=== PATIENT | male | born 1930 | race Caucasian/White ===

== ENCOUNTER → 2017-04-09 | Outpatient (CLI) | payer MEDICARE, OTHER ==
[~2017-04-09] MED LIST: ENAL2.5T PO; HYDR-3237 PO; LOSA50TA6 PO; MAGN64TA9 PO; METO50TA82 PO; METR500T PO; OXYC-302 PO; PRIM50TA PO; SOTA80TA PO; WARF1TAB PO; WARF5TAB7 PO; [UNRECOGNIZED DRUG - OTHER]
[2017-04-10 01:16] LABS: TESTOSTERONE TOTAL 700 ng/dL (264-916)
== END | disposition home or self-care (01) ==
LOC: LAB 08:13
PROVIDERS: ATTEND Urology
DX: C61 Malignant neoplasm of prostate (principal); E29.1 Testicular hypofunction
CPT/HCPCS: 36415; 84153; 84403

== ENCOUNTER → 2017-07-19 | Outpatient (CLI) | payer MEDICARE, OTHER ==
[~2017-07-19] MED LIST changes: +WARF-36 PO; -WARF5TAB7 PO
[2017-07-19 15:54] LABS: BASOPHILS # (AUTO) 0.05 x10^3/uL (0-0.1); BASOPHILS % (AUTO) 0 % (0-1); EOSINOPHILS # (AUTO) 0.33 x10^3/uL (0-0.4); EOSINOPHILS % (AUTO) 3 % (1-7); LYMPHOCYTES % (AUTO) 21 % (22-44); MD NO; MEAN CORPUSCULAR HEMOGLOBIN 31.6 pg (27.5-34.5); MEAN CORPUSCULAR HGB CONC 33.4 g/dL (33.2-36.2); MEAN CORPUSCULAR VOLUME 94.5 fL (81-97); MEAN PLATELET VOLUME 8.7 fL (7.4-10.4); MONOCYTES # (AUTO) 1.05 x10^3/uL (0.2-0.8); MONOCYTES % (AUTO) 10 % (2-9); NEUTROPHILS # (AUTO) 6.69 x10^3/uL (1.8-6.8); NEUTROPHILS % (AUTO) 65 % (42-75); PLATELET COUNT 240 x10^3/uL (130-400); RED BLOOD COUNT 4.42 x10^6/uL (4.38-5.82); RED CELL DISTRIBUTION WIDTH 14.1 % (9.4-14.8)
[2017-07-19 16:03] LABS: ALANINE AMINOTRANSFERASE 17 U/L (12-78); ALBUMIN 3.4 g/dL (3.4-5.0); ANION GAP 7 mmol/L (5-15); CALCIUM 8.3 mg/dL (8.5-10.1); CHLORIDE 112 mmol/L (98-107)
[2017-07-19 16:07] LABS: ALKALINE PHOSPHATASE 99 U/L (45-117); BILIRUBIN,TOTAL 0.4 mg/dL (0.2-1.0); TOTAL PROTEIN 7.1 g/dL (6.4-8.2)
== END | disposition home or self-care (01) ==
LOC: LAB 15:27
PROVIDERS: ATTEND Nurse Practitioner Family
DX: L82.0 Inflamed seborrheic keratosis (principal); L53.8 Other specified erythematous conditions; L29.8 Other pruritus; R20.8 Other disturbances of skin sensation; L20.84 Intrinsic (allergic) eczema; D69.2 Other nonthrombocytopenic purpura; R97.20 Elevated prostate specific antigen [PSA]
CPT/HCPCS: 36415; 80053; 84066; 84153; 85025

== ENCOUNTER 2017-09-01 07:57 | Inpatient (IN) | payer MEDICARE, OTHER ==
[~2017-09-01] VITALS: Ht 177.8 cm; Wt 75.3 kg
[~2017-09-01 07:57] MED LIST changes: -MAGN64TA9 PO; +MAGNESIUM DR64 MG PO
[2017-09-01 08:10] LABS: MEAN CORPUSCULAR HEMOGLOBIN 31.7 pg (27.5-34.5); MEAN CORPUSCULAR HGB CONC 33.3 g/dL (33.2-36.2); MEAN CORPUSCULAR VOLUME 95.3 fL (81-97); MEAN PLATELET VOLUME 8.3 fL (7.4-10.4); PLATELET COUNT 218 x10^3/uL (130-400); RED BLOOD COUNT 4.68 x10^6/uL (4.38-5.82); RED CELL DISTRIBUTION WIDTH 13.9 % (9.4-14.8)
[2017-09-01 08:19] LABS: INTERNATIONAL NORMALIZED RATIO 0.96 (0.93-1.1)
[2017-09-01] MEDS ORDERED: LABETALOL 5MG/ML, 20ML ONE (08:36)
[2017-09-01] MEDS ORDERED: LABETALOL 5MG/ML, 20ML IVPush STA (08:39)
[2017-09-01] MEDS ORDERED: ALTEPLASE 1 MG/ML ONE (08:55)
[2017-09-01 08:56] LABS: BASOPHILS # (AUTO) 0.05 x10^3/uL (0-0.1); BASOPHILS % (AUTO) 0 % (0-1); EOSINOPHILS # (AUTO) 0.18 x10^3/uL (0-0.4); EOSINOPHILS % (AUTO) 2 % (1-7); LYMPHOCYTES # (AUTO) 2.16 x10^3/uL (1-3.4); LYMPHOCYTES % (AUTO) 19 % (22-44); MD SCAN; MONOCYTES # (AUTO) 1.48 x10^3/uL (0.2-0.8); MONOCYTES % (AUTO) 13 % (2-9); NEUTROPHILS # (AUTO) 7.63 x10^3/uL (1.8-6.8); NEUTROPHILS % (AUTO) 66 % (42-75)
[2017-09-01] MEDS: ALTEPLASE IV ONE ×2 (09:00→09:07)
[2017-09-01] MEDS ORDERED: ALTEPLASE 8 MG in SYRINGE 1 EA IVPush ONE (09:00)
[2017-09-01] MEDS ORDERED: MICROFIBRILLAR COLLAGEN 1 GM TP ONE ×2 (10:42→11:00)
[2017-09-01] MEDS ORDERED: LABETALOL 5MG/ML, 20ML IV PRN (11:30)
[2017-09-01] MEDS ORDERED: TOPI25CA PO (13:28)
[2017-09-01] MEDS: THIAMINE 100 MG, MVI ADULT 10 ML, FOLIC ACID 1 MG in D5%-0.9% NACL 1,000 ML IV SCH (13:39)
[2017-09-01] MEDS: NICOTINE 7 MG/24 HR PATCH.TD24 TD SCH (13:39)
[2017-09-01 15:52] LABS: MICROSCOPIC AUTO
[2017-09-01 15:53] LABS: CULTURE INDICATED? NO
[2017-09-01] MEDS: ALBUTEROL/IPRATROPIUM 2.5MG/0.5MG, 3 ML NPPB SCH (17:43)
[2017-09-01] MEDS: ATORVASTATIN 80 MG TABLET PO SCH (21:10)
[2017-09-02 04:00] VITALS: BP 133/69
[2017-09-02 04:34] LABS: MEAN CORPUSCULAR HEMOGLOBIN 31.6 pg (27.5-34.5); MEAN CORPUSCULAR HGB CONC 33.3 g/dL (33.2-36.2); MEAN CORPUSCULAR VOLUME 94.8 fL (81-97); MEAN PLATELET VOLUME 8.4 fL (7.4-10.4); PLATELET COUNT 195 x10^3/uL (130-400); RED BLOOD COUNT 4.25 x10^6/uL (4.38-5.82); RED CELL DISTRIBUTION WIDTH 13.6 % (9.4-14.8)
[2017-09-02 04:47] LABS: ALBUMIN 3.2 g/dL (3.4-5.0); ANION GAP 8 mmol/L (5-15); CALCIUM 8.3 mg/dL (8.5-10.1); CHLORIDE 112 mmol/L (98-107)
[2017-09-02 04:53] LABS: ALANINE AMINOTRANSFERASE 16 U/L (12-78); ALKALINE PHOSPHATASE 70 U/L (45-117); BASOPHILS # (AUTO) 0.09 x10^3/uL (0-0.1); BASOPHILS % (AUTO) 1 % (0-1); CHOL/HDL RATIO 2.8; CHOLESTEROL, TOTAL 148 mg/dL (140-239); CREATININE 0.97 mg/dL (0.7-1.3); EOSINOPHILS # (AUTO) 0.16 x10^3/uL (0-0.4); EOSINOPHILS % (AUTO) 1 % (1-7); HDL CHOL % 36 % (26-37); HDL CHOLESTEROL (DIRECT) 53 mg/dL (40-60); LDL CHOLESTEROL,CALCULATED 70 mg/dL (54-169); LDL/HDL RATIO 1.3 (0.5-3.0); LYMPHOCYTES # (AUTO) 1.78 x10^3/uL (1-3.4); LYMPHOCYTES % (AUTO) 12 % (22-44); MD SCAN; MONOCYTES # (AUTO) 1.69 x10^3/uL (0.2-0.8); MONOCYTES % (AUTO) 11 % (2-9); NEUTROPHILS # (AUTO) 11.38 x10^3/uL (1.8-6.8); NEUTROPHILS % (AUTO) 75 % (42-75); TOTAL PROTEIN 6.4 g/dL (6.4-8.2); TRIGLYCERIDES 126 mg/dL (50-200); VLDL CHOLESTEROL 25 mg/dL (0-25)
[2017-09-02] MEDS: ALBUTEROL/IPRATROPIUM 2.5MG/0.5MG, 3 ML NPPB SCH ×2 (09:00→19:46)
[2017-09-02] MEDS: NICOTINE 7 MG/24 HR PATCH.TD24 TD SCH (12:11)
[2017-09-02] MEDS: THIAMINE 100 MG, MVI ADULT 10 ML, FOLIC ACID 1 MG in D5%-0.9% NACL 1,000 ML IV SCH (12:12)
[2017-09-02] MEDS: TOPIRAMATE 25 MG TABLET PO SCH ×2 (12:12→20:36)
[2017-09-02 14:40] VITALS: BP 130/62
[2017-09-02] MEDS: ASPIRIN 81 MG TABLET EC PO SCH (15:31)
[2017-09-02 18:43] VITALS: BP 127/71
[2017-09-02] MEDS: ATORVASTATIN 80 MG TABLET PO SCH (20:35)
[2017-09-02 23:57] VITALS: BP 107/58
[2017-09-03 03:16] VITALS: BP 124/71
[2017-09-03] MEDS: ENOXAPARIN 40 MG/0.4 ML SQ SCH (05:39)
[2017-09-03 06:07] LABS: BASOPHILS # (AUTO) 0.05 x10^3/uL (0-0.1); BASOPHILS % (AUTO) 0 % (0-1); EOSINOPHILS # (AUTO) 0.18 x10^3/uL (0-0.4); EOSINOPHILS % (AUTO) 2 % (1-7); LYMPHOCYTES # (AUTO) 2.16 x10^3/uL (1-3.4); LYMPHOCYTES % (AUTO) 19 % (22-44); MD NO; MEAN CORPUSCULAR HEMOGLOBIN 31.7 pg (27.5-34.5); MEAN CORPUSCULAR HGB CONC 33.4 g/dL (33.2-36.2); MEAN CORPUSCULAR VOLUME 94.8 fL (81-97); MEAN PLATELET VOLUME 8.3 fL (7.4-10.4); MONOCYTES # (AUTO) 1.22 x10^3/uL (0.2-0.8); MONOCYTES % (AUTO) 11 % (2-9); NEUTROPHILS # (AUTO) 7.73 x10^3/uL (1.8-6.8); NEUTROPHILS % (AUTO) 68 % (42-75); PLATELET COUNT 179 x10^3/uL (130-400); RED BLOOD COUNT 4.12 x10^6/uL (4.38-5.82); RED CELL DISTRIBUTION WIDTH 13.1 % (9.4-14.8)
[2017-09-03 06:25] LABS: CHLORIDE 113 mmol/L (98-107)
[2017-09-03 06:38] LABS: ALANINE AMINOTRANSFERASE 16 U/L (12-78); ALBUMIN 2.9 g/dL (3.4-5.0); ALKALINE PHOSPHATASE 64 U/L (45-117); ANION GAP 8 mmol/L (5-15); BILIRUBIN,TOTAL 1.1 mg/dL (0.2-1.0); CALCIUM 8.1 mg/dL (8.5-10.1); CREATININE 0.94 mg/dL (0.7-1.3); TOTAL PROTEIN 6.2 g/dL (6.4-8.2)
[2017-09-03 07:24] VITALS: BP 126/65
[2017-09-03] MEDS: ALBUTEROL/IPRATROPIUM 2.5MG/0.5MG, 3 ML NPPB SCH (09:00)
[2017-09-03] MEDS: TOPIRAMATE 25 MG TABLET PO SCH ×2 (09:49→22:13)
[2017-09-03] MEDS: NICOTINE 7 MG/24 HR PATCH.TD24 TD SCH (12:25)
[2017-09-03 14:42] VITALS: BP 149/80
[2017-09-03 14:45] VITALS: BP 128/71
[2017-09-03] MEDS: ASPIRIN 81 MG TABLET EC PO SCH (15:04)
[2017-09-03 18:32] VITALS: BP 125/76
[2017-09-03] MEDS: ATORVASTATIN 80 MG TABLET PO SCH (22:13)
[2017-09-04 02:53] VITALS: BP 117/69
[2017-09-04] MEDS: ENOXAPARIN 40 MG/0.4 ML SQ SCH (06:19)
[2017-09-04 07:28] VITALS: BP 121/72
[2017-09-04] MEDS: TOPIRAMATE 25 MG TABLET PO SCH ×2 (09:22→20:37)
[2017-09-04] MEDS: NICOTINE 7 MG/24 HR PATCH.TD24 TD SCH (11:40)
[2017-09-04] MEDS: NS + 20MEQ KCL 1,000 ML IV SCH (13:38)
[2017-09-04 14:02] VITALS: BP 128/75
[2017-09-04] MEDS: ASPIRIN 81 MG TABLET EC PO SCH (15:32)
[2017-09-04 18:23] VITALS: BP 117/70
[2017-09-04] MEDS: ATORVASTATIN 80 MG TABLET PO SCH (20:37)
[2017-09-05] MEDS: NS + 20MEQ KCL 1,000 ML IV SCH ×2 (00:04→13:55)
[2017-09-05 04:42] VITALS: BP 131/70
[2017-09-05 05:15] LABS: MEAN CORPUSCULAR HEMOGLOBIN 32.5 pg (27.5-34.5); MEAN CORPUSCULAR HGB CONC 34.3 g/dL (33.2-36.2); MEAN CORPUSCULAR VOLUME 94.8 fL (81-97); MEAN PLATELET VOLUME 8.3 fL (7.4-10.4); PLATELET COUNT 171 x10^3/uL (130-400); RED BLOOD COUNT 3.97 x10^6/uL (4.38-5.82); RED CELL DISTRIBUTION WIDTH 13.3 % (9.4-14.8)
[2017-09-05 05:31] LABS: ALBUMIN 2.8 g/dL (3.4-5.0); ANION GAP 9 mmol/L (5-15); CALCIUM 7.9 mg/dL (8.5-10.1); CHLORIDE 111 mmol/L (98-107); CREATININE 0.87 mg/dL (0.7-1.3)
[2017-09-05 06:07] LABS: BASOPHILS # (AUTO) 0.04 x10^3/uL (0-0.1); BASOPHILS % (AUTO) 0 % (0-1); EOSINOPHILS # (AUTO) 0.22 x10^3/uL (0-0.4); EOSINOPHILS % (AUTO) 2 % (1-7); LYMPHOCYTES # (AUTO) 1.82 x10^3/uL (1-3.4); LYMPHOCYTES % (AUTO) 15 % (22-44); MD SCAN; MONOCYTES # (AUTO) 1.53 x10^3/uL (0.2-0.8); MONOCYTES % (AUTO) 12 % (2-9); NEUTROPHILS % (AUTO) 71 % (42-75)
[2017-09-05] MEDS: ENOXAPARIN 40 MG/0.4 ML SQ SCH (06:45)
[2017-09-05 07:07] VITALS: BP 152/64
[2017-09-05] MEDS: TOPIRAMATE 25 MG TABLET PO SCH ×2 (09:12→21:31)
[2017-09-05] MEDS: NICOTINE 7 MG/24 HR PATCH.TD24 TD SCH (09:13)
[2017-09-05] MEDS: ASPIRIN 81 MG TABLET EC PO SCH (13:55)
[2017-09-05 14:45] VITALS: BP 134/72
[2017-09-05 20:26] LABS: CLOSTRIDIUM DIFFICILE ANTIGEN NEGATIVE; CLOSTRIDIUM DIFFICILE TOXIN NEGATIVE (Negative)
[2017-09-05 20:39] VITALS: BP 154/78
[2017-09-05] MEDS: ATORVASTATIN 80 MG TABLET PO SCH (21:31)
[2017-09-06] MEDS: NS + 20MEQ KCL 1,000 ML IV SCH (00:30)
[2017-09-06 01:04] VITALS: BP 130/72
[2017-09-06 04:36] VITALS: BP 130/72
[2017-09-06] MEDS: ENOXAPARIN 40 MG/0.4 ML SQ SCH (06:20)
[2017-09-06 08:26] VITALS: BP 117/69
[2017-09-06] MEDS: TOPIRAMATE 25 MG TABLET PO SCH ×2 (08:57→21:19)
[2017-09-06] MEDS: NICOTINE 7 MG/24 HR PATCH.TD24 TD SCH (08:58)
[2017-09-06] MEDS ORDERED: LOPERAMIDE 2 MG CAPSULE PO PRN (09:00)
[2017-09-06 12:17] VITALS: BP 148/78
[2017-09-06] MEDS: ASPIRIN 81 MG TABLET EC PO SCH (16:37)
[2017-09-06 16:38] VITALS: BP 150/84
[2017-09-06 19:03] VITALS: BP 131/74
[2017-09-06] MEDS: ATORVASTATIN 80 MG TABLET PO SCH (21:19)
[2017-09-07 02:00] VITALS: BP 144/70
[2017-09-07 04:00] VITALS: BP_SYST 127; BP_SYST 137; BP_DIAS 72; BP_DIAS 75
[2017-09-07] MEDS: ENOXAPARIN 40 MG/0.4 ML SQ SCH (05:15)
[2017-09-07 05:52] LABS: BASOPHILS # (AUTO) 0.01 x10^3/uL (0-0.1); BASOPHILS % (AUTO) 0 % (0-1); EOSINOPHILS # (AUTO) 0.23 x10^3/uL (0-0.4); EOSINOPHILS % (AUTO) 2 % (1-7); LYMPHOCYTES # (AUTO) 1.72 x10^3/uL (1-3.4); LYMPHOCYTES % (AUTO) 15 % (22-44); MD NO; MEAN CORPUSCULAR HEMOGLOBIN 32.3 pg (27.5-34.5); MEAN CORPUSCULAR VOLUME 95.1 fL (81-97); MEAN PLATELET VOLUME 8.3 fL (7.4-10.4); MONOCYTES # (AUTO) 1.17 x10^3/uL (0.2-0.8); MONOCYTES % (AUTO) 10 % (2-9); NEUTROPHILS # (AUTO) 8.11 x10^3/uL (1.8-6.8); NEUTROPHILS % (AUTO) 72 % (42-75); PLATELET COUNT 196 x10^3/uL (130-400); RED BLOOD COUNT 4.58 x10^6/uL (4.38-5.82); RED CELL DISTRIBUTION WIDTH 13.3 % (9.4-14.8)
[2017-09-07 06:02] LABS: ANION GAP 8 mmol/L (5-15); CALCIUM 8.6 mg/dL (8.5-10.1); CHLORIDE 110 mmol/L (98-107)
[2017-09-07 06:35] VITALS: BP 124/70
[2017-09-07] MEDS: TOPIRAMATE 25 MG TABLET PO SCH (09:25)
[2017-09-07] MEDS ORDERED: NICO-485 TD (11:11)
[2017-09-07] MEDS ORDERED: ATOR-2 PO (11:11)
[2017-09-07] MEDS ORDERED: ASPI-621 PO (11:11)
[2017-09-07 12:07] VITALS: BP 129/75
[2017-09-07] MEDS: NICOTINE 7 MG/24 HR PATCH.TD24 TD SCH (13:16)
[2017-09-07] MEDS: ASPIRIN 81 MG TABLET EC PO SCH (15:40)
== END 2017-09-07 16:53 | DRG 61 ==
LOC: ED 10:19 → EDIP 10:57 → CCU 12:17 → 4WST 09-02 15:16
PROVIDERS: ADMIT Hospitalist; ATTEND Hospitalist
DX: I63.312 Cerebral infarction due to thrombosis of left middle cerebral artery (principal); G93.40 Encephalopathy, unspecified; E44.0 Moderate protein-calorie malnutrition; I48.0 Paroxysmal atrial fibrillation; R47.01 Aphasia; R13.10 Dysphagia, unspecified; F17.200 Nicotine dependence, unspecified, uncomplicated; D72.829 Elevated white blood cell count, unspecified; I73.9 Peripheral vascular disease, unspecified; I11.9 Hypertensive heart disease without heart failure; F17.210 Nicotine dependence, cigarettes, uncomplicated; G25.0 Essential tremor; I65.22 Occlusion and stenosis of left carotid artery; M17.11 Unilateral primary osteoarthritis, right knee; N40.0 Benign prostatic hyperplasia without lower urinary tract symptoms; R29.810 Facial weakness; Z79.01 Long term (current) use of anticoagulants; Z68.23 Body mass index [BMI] 23.0-23.9, adult; Z85.038 Personal history of other malignant neoplasm of large intestine; Z88.8 Allergy status to other drugs, medicaments and biological substances; Z82.49 Family history of ischemic heart disease and other diseases of the circulatory system
CPT/HCPCS: 36415; 70450; 70544; 70551; 74230; 80047; 80048; 80053; 80061; 80069; 81001; 83735; 84100; 85025; 85610; 85730; 87081; 87324; 93005; 93306; 93880; 94640; 96365; 96366; 96375; J1650; J2997; J3411; J3480; J7042; J7620; 92523-GN

== ENCOUNTER → 2017-11-03 | Outpatient (CLI) | payer MEDICARE, OTHER ==
[~2017-11-03] MED LIST changes: +ASPI-621 PO; +ATOR-2 PO; +NICO-485 TD; +TOPI25CA PO
== END | disposition home or self-care (01) ==
LOC: LAB 12:02
PROVIDERS: ATTEND Physician Assistant
DX: C61 Malignant neoplasm of prostate (principal)
CPT/HCPCS: 36415; 84153

== ENCOUNTER 2018-06-08 16:44 | Inpatient (IN) | payer MEDICARE, OTHER ==
[~2018-06-08] VITALS: Ht 177.8 cm; Wt 84.2 kg
[~2018-06-08 16:44] MED LIST changes: -ASPI-621 PO; +ASPI81TA45 PO; +LOSA50TA14 PO; -LOSA50TA6 PO
--- NOTE | 2018-06-08 17:00 | NUR ---
SEE TRIAGE NOTE. PT PLACED ON BP CUFF, PULSE OX, AND HEART MONITOR. EKG COMPLETED AT BS. CALL LIGHT WITHIN REACH.
[2018-06-08] MEDS ORDERED: SODIUM CHLORIDE FLUSH 10ML SYR IVF ONE (18:00)
[2018-06-08] MEDS ORDERED: PLEASE ENTER HEIGHT AND WEIGHT MC SCH (18:00)
[2018-06-08 18:15] LABS: BASOPHILS # (AUTO) 0.01 x10^3/uL (0-0.1); BASOPHILS % (AUTO) 0 % (0-1); EOSINOPHILS # (AUTO) 0.02 x10^3/uL (0-0.4); EOSINOPHILS % (AUTO) 0 % (1-7); LYMPHOCYTES # (AUTO) 0.87 x10^3/uL (1-3.4); LYMPHOCYTES % (AUTO) 8 % (22-44); MD NO; MEAN CORPUSCULAR HEMOGLOBIN 31.8 pg (27.5-34.5); MEAN CORPUSCULAR HGB CONC 33.9 g/dL (33.2-36.2); MEAN CORPUSCULAR VOLUME 93.9 fL (81-97); MEAN PLATELET VOLUME 8.2 fL (7.4-10.4); MONOCYTES # (AUTO) 1.03 x10^3/uL (0.2-0.8); MONOCYTES % (AUTO) 9 % (2-9); NEUTROPHILS # (AUTO) 9.24 x10^3/uL (1.8-6.8); NEUTROPHILS % (AUTO) 83 % (42-75); PLATELET COUNT 177 x10^3/uL (130-400); RED BLOOD COUNT 3.81 x10^6/uL (4.38-5.82); RED CELL DISTRIBUTION WIDTH 13.8 % (9.4-14.8)
[2018-06-08 18:18] LABS: INTERNATIONAL NORMALIZED RATIO 1.39 (0.93-1.1); PROTHROMBIN TIME 14.5 Seconds (9.6-11.5)
[2018-06-08] MEDS ORDERED: MONT10TA9 PO (18:20)
[2018-06-08] MEDS ORDERED: HYDR25TA11 PO (18:20)
[2018-06-08] MEDS ORDERED: FEXO1TAB29 PO (18:20)
[2018-06-08] MEDS ORDERED: HYDR-3240 PO (18:20)
[2018-06-08] MEDS ORDERED: PROP80CA3 PO (18:20)
[2018-06-08] MEDS ORDERED: ATOR-2 PO (18:20)
[2018-06-08] MEDS ORDERED: TAMS0.4C2 PO (18:20)
[2018-06-08] MEDS ORDERED: WARF-36 PO (18:20)
[2018-06-08 18:22] LABS: ALBUMIN 3.2 g/dL (3.4-5.0); ANION GAP 7 mmol/L (5-15); CALCIUM 8.1 mg/dL (8.5-10.1); CHLORIDE 112 mmol/L (98-107)
--- NOTE | 2018-06-08 18:22 | NUR ---
PT BACK FROM CT. AT BS. MORE HX OBTAINED, MED REC COMPLETED. PT AND FAMILY UPDATED ON POC. VSS/UPDATED IN COMPUTER.
[2018-06-08 18:25] LABS: ALANINE AMINOTRANSFERASE 31 U/L (12-78); ALKALINE PHOSPHATASE 61 U/L (45-117); BILIRUBIN,TOTAL 1.1 mg/dL (0.2-1.0); CREATININE 1.48 mg/dL (0.7-1.3); TOTAL PROTEIN 7.2 g/dL (6.4-8.2)
[2018-06-08 18:59] LABS: MICROSCOPIC NOT IND
[2018-06-08 19:00] LABS: CULTURE INDICATED? NO
[2018-06-08] MEDS ORDERED: SODIUM CHLORIDE 0.9% 1,000ML IVBOLUS ONE (19:30)
--- NOTE | 2018-06-08 19:35 | NUR ---
BACK FROM MEAL BREAK. PT REPOSITIONED. WATER PROVIDED ON REQUEST. TOILETING INCLUDING COLLECTION OF UA ALREADY DONE BY BREAK RN (BM X 1, URINE-ATTENDS). VSS.
[2018-06-08] MEDS ORDERED: SODIUM CHLORIDE 0.9% 1,000 ML IV ONE (19:54)
[2018-06-08] MEDS ORDERED: SODIUM CHLORIDE FLUSH 10ML SYR IVF PRN (20:00)
--- NOTE | 2018-06-08 20:09 | NUR ---
late entry aprox 1910, rosalva kennedy for lunch, ua collected and sent to lab. skin care/cleansed from bm. no needs per pt. call light in place and side rails up.
--- NOTE | 2018-06-08 20:29 | NUR ---
DR REYNAGA IN TO SEE PT.
--- NOTE | 2018-06-08 20:45 | NUR ---
PT OFFERED FOOD AFTER DR REYNAGA ORDERED REGULAR MEAL TRAY. PT ASKED FOR VARIOUS ED ITEMS, PUDDING, APPLESAUCE AND CEREAL PROVIDED.
--- NOTE | 2018-06-08 21:00 | NUR ---
REPORT TO MARY RN, PT READY FOR TRANSPORT.
[2018-06-08] MEDS ORDERED: morphine SULFATE 10 MG/ML, 1ML IVPush PRN (22:00)
[2018-06-08] MEDS ORDERED: HEPARIN 5,000 UNITS/ML, 1ML SQ SCH (22:00)
[2018-06-08] MEDS ORDERED: OXYcodone IR 5MG TABLET PO PRN (22:00)
[2018-06-08] MEDS ORDERED: HYDROcodone/APAP 5/325 TABLET PO PRN (22:00)
[2018-06-08] MEDS ORDERED: POLYETHYLENE GLYCOL 17 GM PACKET PO PRN (22:00)
[2018-06-08] MEDS ORDERED: DOCUSATE 100 MG CAPSULE PO PRN (22:00)
[2018-06-08] MEDS ORDERED: ONDANSETRON 2MG/ML, 2ML IVPush PRN (22:00)
[2018-06-08] MEDS ORDERED: ONDANSETRON ODT 4 MG PO PRN (22:00)
[2018-06-08] MEDS ORDERED: BISACODYL 10 MG SUPP PR PRN (22:00)
[2018-06-08] MEDS ORDERED: hydrALAzine 20 MG/ML, 1ML IVPush PRN (22:00)
[2018-06-08] MEDS ORDERED: LABETALOL 5MG/ML, 20ML IVPush PRN (22:00)
[2018-06-08] MEDS ORDERED: ACETAMINOPHEN 325 MG TABLET PO PRN (22:00)
[2018-06-08] MEDS ORDERED: PROMETHAZINE 25 MG/ML, 1ML IM PRN (22:00)
[2018-06-08] MEDS: SODIUM CHLORIDE 0.9% 1,000 ML IV SCH (22:20)
[2018-06-08] MEDS ORDERED: WARFARIN 7.5 MG TABLET PO-COUM ONE (23:00)
[2018-06-08 23:03] LABS: FREE T4 (FREE THYROXINE) 0.91 ng/dL (0.76-1.46); THYROID STIMULATING HORMONE 0.693 mIU/L (0.358-3.740)
[2018-06-08 23:13] LABS: HEMOGLOBIN A1C 6.5 % (4.2-6.3)
[2018-06-09 01:57] VITALS: BP 106/65
[2018-06-09 05:45] LABS: BASOPHILS # (AUTO) 0.02 x10^3/uL (0-0.1); BASOPHILS % (AUTO) 0 % (0-1); EOSINOPHILS # (AUTO) 0.06 x10^3/uL (0-0.4); EOSINOPHILS % (AUTO) 1 % (1-7); LYMPHOCYTES # (AUTO) 1.67 x10^3/uL (1-3.4); LYMPHOCYTES % (AUTO) 18 % (22-44); MD NO; MEAN CORPUSCULAR HEMOGLOBIN 31.4 pg (27.5-34.5); MEAN CORPUSCULAR HGB CONC 33.5 g/dL (33.2-36.2); MEAN CORPUSCULAR VOLUME 93.9 fL (81-97); MEAN PLATELET VOLUME 8.4 fL (7.4-10.4); MONOCYTES # (AUTO) 1.17 x10^3/uL (0.2-0.8); MONOCYTES % (AUTO) 13 % (2-9); NEUTROPHILS # (AUTO) 6.26 x10^3/uL (1.8-6.8); NEUTROPHILS % (AUTO) 68 % (42-75); PLATELET COUNT 147 x10^3/uL (130-400); RED BLOOD COUNT 3.21 x10^6/uL (4.38-5.82)
[2018-06-09 05:49] LABS: CHLORIDE 110 mmol/L (98-107)
[2018-06-09 05:57] LABS: ALANINE AMINOTRANSFERASE 27 U/L (12-78); ALBUMIN 2.6 g/dL (3.4-5.0); ALKALINE PHOSPHATASE 52 U/L (45-117); ANION GAP 6 mmol/L (5-15); BILIRUBIN,TOTAL 0.9 mg/dL (0.2-1.0); CALCIUM 7.8 mg/dL (8.5-10.1); CHOLESTEROL, TOTAL 86 mg/dL (140-239); CREATININE 1.18 mg/dL (0.7-1.3); HDL CHOL % 51 % (26-37); HDL CHOLESTEROL (DIRECT) 44 mg/dL (40-60); LDL CHOLESTEROL,CALCULATED 28 mg/dL (54-169); LDL/HDL RATIO 0.6 (0.5-3.0); TOTAL PROTEIN 5.7 g/dL (6.4-8.2); TRIGLYCERIDES 72 mg/dL (50-200); VLDL CHOLESTEROL 14 mg/dL (0-25)
[2018-06-09 07:28] VITALS: BP 112/59
[2018-06-09 07:57] VITALS: BP 194/119
[2018-06-09] MEDS: TAMSULOSIN 0.4 MG CAP.ER.24H PO SCH (08:28)
[2018-06-09] MEDS: ASPIRIN 81 MG TABLET EC PO SCH (08:28)
[2018-06-09] MEDS: PROPRANOLOl 80 MG CAP.SA.24H PO SCH (08:29)
[2018-06-09] MEDS: SODIUM CHLORIDE 0.9% 1,000 ML IV SCH (11:14)
[2018-06-09 12:09] LABS: INTERNATIONAL NORMALIZED RATIO 1.31 (0.93-1.1); PROTHROMBIN TIME 13.7 Seconds (9.6-11.5)
[2018-06-09 12:30] VITALS: BP 111/58
[2018-06-09] MEDS ORDERED: WARFARIN 7.5 MG TABLET PO-COUM ONE (18:00)
[2018-06-09 19:01] VITALS: BP 124/52
[2018-06-09] MEDS: MONTELUKAST 10 MG TABLET PO SCH (20:38)
[2018-06-09] MEDS: ATORVASTATIN 80 MG TABLET PO SCH (20:38)
[2018-06-10 02:40] VITALS: BP 130/65
[2018-06-10 05:32] LABS: MEAN CORPUSCULAR HGB CONC 33.1 g/dL (33.2-36.2); MEAN CORPUSCULAR VOLUME 93.7 fL (81-97); MEAN PLATELET VOLUME 8.6 fL (7.4-10.4); PLATELET COUNT 141 x10^3/uL (130-400); RED BLOOD COUNT 3.27 x10^6/uL (4.38-5.82)
[2018-06-10 05:36] LABS: INTERNATIONAL NORMALIZED RATIO 1.65 (0.93-1.1); PROTHROMBIN TIME 17.2 Seconds (9.6-11.5)
[2018-06-10 05:46] LABS: CHLORIDE 114 mmol/L (98-107)
[2018-06-10 05:52] LABS: ANION GAP 6 mmol/L (5-15); CALCIUM 7.7 mg/dL (8.5-10.1); CREATININE 1.08 mg/dL (0.7-1.3)
[2018-06-10 06:09] LABS: BASOPHILS # (AUTO) 0.02 x10^3/uL (0-0.1); BASOPHILS % (AUTO) 0 % (0-1); EOSINOPHILS # (AUTO) 0.32 x10^3/uL (0-0.4); EOSINOPHILS % (AUTO) 3 % (1-7); LYMPHOCYTES # (AUTO) 2.45 x10^3/uL (1-3.4); LYMPHOCYTES % (AUTO) 25 % (22-44); MD SCAN; MONOCYTES # (AUTO) 1.46 x10^3/uL (0.2-0.8); MONOCYTES % (AUTO) 15 % (2-9); NEUTROPHILS # (AUTO) 5.55 x10^3/uL (1.8-6.8); NEUTROPHILS % (AUTO) 57 % (42-75)
[2018-06-10] MEDS ORDERED: VANCOMYCIN IV ONE (07:00)
[2018-06-10] MEDS ORDERED: VANCOMYCIN 1,800 MG in SODIUM CHLORIDE 0.9% 250 ML IV ONE (07:00)
[2018-06-10 07:02] VITALS: BP 147/63
[2018-06-10] MEDS: DOCUSATE 100 MG CAPSULE PO SCH ×2 (08:25→20:46)
[2018-06-10] MEDS: ASPIRIN 81 MG TABLET EC PO SCH (08:25)
[2018-06-10] MEDS: TAMSULOSIN 0.4 MG CAP.ER.24H PO SCH (08:25)
[2018-06-10] MEDS: SODIUM CHLORIDE 0.9% 1,000 ML IV SCH (08:25)
[2018-06-10] MEDS: PROPRANOLOl 80 MG CAP.SA.24H PO SCH (08:26)
[2018-06-10] MEDS ORDERED: VANCOMYCIN IV SCH (09:00)
[2018-06-10 13:07] VITALS: BP 142/72
[2018-06-10] MEDS ORDERED: WARFARIN 7.5 MG TABLET PO-COUM ONE (18:00)
[2018-06-10 19:23] VITALS: BP 131/69
[2018-06-10] MEDS: ATORVASTATIN 80 MG TABLET PO SCH (20:45)
[2018-06-10] MEDS: MONTELUKAST 10 MG TABLET PO SCH (20:46)
[2018-06-10] MEDS: VANCOMYCIN 1,800 MG in SODIUM CHLORIDE 0.9% 250 ML IV SCH (20:46)
[2018-06-11 01:36] VITALS: BP 158/79
[2018-06-11 04:59] LABS: INTERNATIONAL NORMALIZED RATIO 2.71 (0.93-1.1); PROTHROMBIN TIME 27.6 Seconds (9.6-11.5)
[2018-06-11 05:00] LABS: BASOPHILS # (AUTO) 0.04 x10^3/uL (0-0.1); BASOPHILS % (AUTO) 1 % (0-1); EOSINOPHILS # (AUTO) 0.39 x10^3/uL (0-0.4); EOSINOPHILS % (AUTO) 4 % (1-7); LYMPHOCYTES # (AUTO) 2.56 x10^3/uL (1-3.4); LYMPHOCYTES % (AUTO) 29 % (22-44); MD NO; MEAN CORPUSCULAR HEMOGLOBIN 31.5 pg (27.5-34.5); MEAN CORPUSCULAR HGB CONC 33.3 g/dL (33.2-36.2); MEAN CORPUSCULAR VOLUME 94.4 fL (81-97); MEAN PLATELET VOLUME 8.7 fL (7.4-10.4); MONOCYTES # (AUTO) 1.39 x10^3/uL (0.2-0.8); MONOCYTES % (AUTO) 16 % (2-9); NEUTROPHILS # (AUTO) 4.58 x10^3/uL (1.8-6.8); NEUTROPHILS % (AUTO) 51 % (42-75); PLATELET COUNT 164 x10^3/uL (130-400); RED BLOOD COUNT 3.53 x10^6/uL (4.38-5.82); RED CELL DISTRIBUTION WIDTH 13.9 % (9.4-14.8)
[2018-06-11 05:03] LABS: ANION GAP 6 mmol/L (5-15); CALCIUM 8.3 mg/dL (8.5-10.1); CHLORIDE 113 mmol/L (98-107); CREATININE 0.96 mg/dL (0.7-1.3)
[2018-06-11 07:28] VITALS: BP 167/72
[2018-06-11 08:40] LABS: HCT (SEDRATE) 33.4 % (39.2-51.8)
[2018-06-11] MEDS: ASPIRIN 81 MG TABLET EC PO SCH (08:41)
[2018-06-11] MEDS: TAMSULOSIN 0.4 MG CAP.ER.24H PO SCH (08:41)
[2018-06-11] MEDS: DOCUSATE 100 MG CAPSULE PO SCH ×2 (08:41→21:57)
[2018-06-11] MEDS: PROPRANOLOl 80 MG CAP.SA.24H PO SCH (08:42)
[2018-06-11] MEDS: VANCOMYCIN 1,800 MG in SODIUM CHLORIDE 0.9% 250 ML IV SCH ×2 (09:24→20:31)
[2018-06-11 12:49] VITALS: BP 142/71
[2018-06-11] MEDS: SODIUM CHLORIDE 0.9% 1,000 ML IV SCH (13:43)
[2018-06-11] MEDS ORDERED: WARFARIN 1 MG TABLET PO-COUM ONE (18:00)
[2018-06-11 19:52] VITALS: BP 167/77
[2018-06-11] MEDS: ATORVASTATIN 80 MG TABLET PO SCH (20:30)
[2018-06-11] MEDS: MONTELUKAST 10 MG TABLET PO SCH (20:31)
[2018-06-12 02:00] VITALS: BP 150/70
[2018-06-12 04:30] LABS: BASOPHILS # (AUTO) 0.02 x10^3/uL (0-0.1); BASOPHILS % (AUTO) 0 % (0-1); EOSINOPHILS # (AUTO) 0.32 x10^3/uL (0-0.4); EOSINOPHILS % (AUTO) 4 % (1-7); LYMPHOCYTES # (AUTO) 2.51 x10^3/uL (1-3.4); LYMPHOCYTES % (AUTO) 30 % (22-44); MD NO; MEAN CORPUSCULAR HEMOGLOBIN 31.5 pg (27.5-34.5); MEAN CORPUSCULAR HGB CONC 33.4 g/dL (33.2-36.2); MEAN CORPUSCULAR VOLUME 94.5 fL (81-97); MONOCYTES # (AUTO) 1.11 x10^3/uL (0.2-0.8); MONOCYTES % (AUTO) 14 % (2-9); NEUTROPHILS % (AUTO) 52 % (42-75); PLATELET COUNT 158 x10^3/uL (130-400); RED BLOOD COUNT 3.71 x10^6/uL (4.38-5.82); RED CELL DISTRIBUTION WIDTH 13.9 % (9.4-14.8)
[2018-06-12 04:33] LABS: INTERNATIONAL NORMALIZED RATIO 3.05 (0.93-1.1)
[2018-06-12 04:42] LABS: CHLORIDE 113 mmol/L (98-107)
[2018-06-12 04:47] LABS: ANION GAP 6 mmol/L (5-15); CALCIUM 7.9 mg/dL (8.5-10.1)
[2018-06-12 08:47] VITALS: BP 145/68
[2018-06-12] MEDS: PROPRANOLOl 80 MG CAP.SA.24H PO SCH (09:00)
[2018-06-12] MEDS: DOCUSATE 100 MG CAPSULE PO SCH ×2 (09:35→21:04)
[2018-06-12] MEDS: VANCOMYCIN 1,700 MG in SODIUM CHLORIDE 0.9% 250 ML IV SCH ×2 (09:36→21:05)
[2018-06-12] MEDS: ASPIRIN 81 MG TABLET EC PO SCH (09:36)
[2018-06-12] MEDS: TAMSULOSIN 0.4 MG CAP.ER.24H PO SCH (09:36)
[2018-06-12] MEDS: AMLODIPINE 5 MG TABLET PO SCH (09:36)
[2018-06-12] MEDS: SODIUM CHLORIDE 0.9% 1,000 ML IV SCH (09:43)
[2018-06-12 12:06] VITALS: BP 116/63
[2018-06-12] MEDS ORDERED: WARFARIN 1 MG TABLET PO-COUM ONE (18:00)
[2018-06-12 19:11] VITALS: BP 137/75
[2018-06-12] MEDS: ATORVASTATIN 80 MG TABLET PO SCH (21:04)
[2018-06-12] MEDS: MONTELUKAST 10 MG TABLET PO SCH (21:05)
[2018-06-13 00:52] VITALS: BP 133/65
[2018-06-13 06:01] LABS: INTERNATIONAL NORMALIZED RATIO 2.16 (0.93-1.1); PROTHROMBIN TIME 22.2 Seconds (9.6-11.5)
[2018-06-13 06:07] LABS: ANION GAP 5 mmol/L (5-15); CALCIUM 7.8 mg/dL (8.5-10.1); CHLORIDE 113 mmol/L (98-107)
[2018-06-13 06:09] LABS: CREATININE 0.96 mg/dL (0.7-1.3)
[2018-06-13 07:02] VITALS: BP 139/66
[2018-06-13] MEDS: SODIUM CHLORIDE 0.9% 1,000 ML IV SCH (08:25)
[2018-06-13] MEDS: VANCOMYCIN 1,700 MG in SODIUM CHLORIDE 0.9% 250 ML IV SCH ×2 (08:25→20:51)
[2018-06-13] MEDS: ASPIRIN 81 MG TABLET EC PO SCH (08:25)
[2018-06-13] MEDS: DOCUSATE 100 MG CAPSULE PO SCH ×2 (08:25→20:51)
[2018-06-13] MEDS: PROPRANOLOl 80 MG CAP.SA.24H PO SCH (08:26)
[2018-06-13] MEDS: AMLODIPINE 5 MG TABLET PO SCH (08:26)
[2018-06-13] MEDS: TAMSULOSIN 0.4 MG CAP.ER.24H PO SCH (08:26)
[2018-06-13 12:19] VITALS: BP 117/64
[2018-06-13] MEDS ORDERED: WARFARIN 5 MG TABLET PO-COUM ONE (17:50)
[2018-06-13] MEDS ORDERED: WARFARIN 2.5 MG TABLET PO-COUM ONE (18:00)
[2018-06-13 18:57] VITALS: BP 119/68
[2018-06-13] MEDS: MONTELUKAST 10 MG TABLET PO SCH (20:51)
[2018-06-13] MEDS: ATORVASTATIN 80 MG TABLET PO SCH (20:51)
[2018-06-14 00:17] VITALS: BP 124/64
[2018-06-14] MEDS: SODIUM CHLORIDE 0.9% 1,000 ML IV SCH (04:00)
[2018-06-14 05:07] LABS: INTERNATIONAL NORMALIZED RATIO 1.71 (0.93-1.1); PROTHROMBIN TIME 17.8 Seconds (9.6-11.5)
[2018-06-14 07:23] VITALS: BP 135/72
[2018-06-14] MEDS: PROPRANOLOl 80 MG CAP.SA.24H PO SCH (09:00)
[2018-06-14] MEDS: VANCOMYCIN 1,700 MG in SODIUM CHLORIDE 0.9% 250 ML IV SCH (09:18)
[2018-06-14] MEDS: DOCUSATE 100 MG CAPSULE PO SCH (09:18)
[2018-06-14] MEDS: TAMSULOSIN 0.4 MG CAP.ER.24H PO SCH (09:18)
[2018-06-14] MEDS: ASPIRIN 81 MG TABLET EC PO SCH (09:18)
[2018-06-14] MEDS: AMLODIPINE 5 MG TABLET PO SCH (09:18)
[2018-06-14 12:23] VITALS: BP 119/66
[2018-06-14] MEDS ORDERED: AMOX1TAB64 PO (14:50)
[2018-06-14] MEDS ORDERED: AMLO-150 PO (14:50)
[2018-06-14] MEDS ORDERED: WARFARIN 5 MG TABLET PO-COUM ONE (18:00)
== END 2018-06-14 17:00 | disposition home or self-care (01) | DRG 682 ==
LOC: ED 18:29 → EDIP 19:54 → 4WST 20:46 → EDIP 20:49 → 4WST 21:25 → DCLOUNGE 06-14 16:34
PROVIDERS: ADMIT Internal Medicine; ATTEND Internal Medicine
PROC: 0T9B70Z Drainage of Bladder with Drainage Device, Via Natural or Artificial Opening (ICD-10-PCS; principal; 2018-06-08)
DX: N17.0 Acute kidney failure with tubular necrosis (principal); G93.41 Metabolic encephalopathy; R78.81 Bacteremia; E44.0 Moderate protein-calorie malnutrition; D68.69 Other thrombophilia; B96.89 Other specified bacterial agents as the cause of diseases classified elsewhere; D64.9 Anemia, unspecified; E86.0 Dehydration; G25.0 Essential tremor; I10 Essential (primary) hypertension; I48.0 Paroxysmal atrial fibrillation; I65.22 Occlusion and stenosis of left carotid artery; I69.320 Aphasia following cerebral infarction; N40.0 Benign prostatic hyperplasia without lower urinary tract symptoms; R62.7 Adult failure to thrive; Z79.01 Long term (current) use of anticoagulants; Z85.038 Personal history of other malignant neoplasm of large intestine; Z87.891 Personal history of nicotine dependence; Z88.8 Allergy status to other drugs, medicaments and biological substances; Z68.26 Body mass index [BMI] 26.0-26.9, adult
CPT/HCPCS: 36415; 70450; 71045; 80048; 80053; 80061; 80202; 81003; 83036; 83735; 84145; 84439; 84443; 85025; 85610; 85651; 86140; 87040; 93005; 99285; G0378; J3370; J7030; J7050; Q0177